=== PATIENT | female | born 1990 | race Caucasian/White ===

== ENCOUNTER 2023-05-07 20:06 | Inpatient (IN) | payer OTHER ==
[2023-05-07 21:09] VITALS: BMI 30.2
[2023-05-07] MEDS ORDERED: ACETAMINOPHEN 325 MG TABLET (FP) PO PRN (23:43)
[2023-05-07] MEDS ORDERED: NALOXONE HCL 0.4 MG/ML VIAL IM PRN (23:43)
[2023-05-07] MEDS ORDERED: IBUPROFEN 400 MG TABLET (FP) PO PRN (23:43)
[2023-05-07] MEDS ORDERED: BENZOCAINE/MENTHOL (CHLORASEPTIC ) LOZENGE MM PRN (23:43)
[2023-05-07] MEDS ORDERED: P-EPHED 60MG/TRIPROLIDI 2.5MG TABLET PO PRN (23:43)
[2023-05-07] MEDS ORDERED: DICYCLOMINE HCL 10 MG CAPSULE PO PRN (23:43)
[2023-05-07] MEDS ORDERED: ONDANSETRON *ODT* 4 MG TABLET SL PRN (23:43)
[2023-05-07] MEDS ORDERED: LOPERAMIDE HCL 2 MG CAPSULE PO PRN (23:43)
[2023-05-07] MEDS ORDERED: MAGNESIUM HYDROX 2400MG/30ML ORAL SUSPENSION 30 ML CUP PO PRN (23:43)
[2023-05-07] MEDS ORDERED: POLYETHYLENE GLYCOL (HEALTHYLAX) 3350 17 GM PACKET PO PRN (23:43)
[2023-05-07] MEDS ORDERED: guaiFENesin 600 MG TABLET.ER (FP) PO PRN (23:43)
[2023-05-07] MEDS ORDERED: MAG HYDROX/AL HYDROX/SIMETH 30 ML UNIT-DOSE CUP PO PRN (23:43)
[2023-05-07] MEDS ORDERED: BISMUTH SUBSALICYLATE 524 MG/30 ML PO PRN (23:43)
[2023-05-07] MEDS ORDERED: IBUPROFEN 600 MG TABLET (FP) PO PRN (23:43)
[2023-05-07] MEDS ORDERED: BENZONATATE 200 MG CAPSULE PO PRN (23:43)
[2023-05-07] MEDS ORDERED: NALOXONE HCL (KLOXXADO) 8 MG SPRAY NS PRN (23:43)
[2023-05-08 10:45] LABS: HEMATOCRIT 37.9 % (32.4-45.2); HEMOGLOBIN 12.2 GM/dL (10.7-15.3); MCH 28.5 pg (25.7-33.7); MCHC 32.2 g/dl (32.0-36.0); MEAN CELL VOLUME 88.3 fl (80-96); PLATELET COUNT 251 10^3/uL (134-434); RBC 4.29 M/mm3 (3.60-5.2); RDW 14.1 % (11.6-15.6); WHITE BLOOD COUNT 10.5 K/mm3 (4.0-10.0)
[2023-05-08] MEDS ORDERED: PRENATAL VITAMINS W/ FOLIC ACID TABLET (FP) PO ONE (11:12)
[2023-05-08] MEDS: PRENATAL VITAMINS W/ FOLIC ACID TABLET (FP) PO SCH (11:14)
[2023-05-08 11:50] LABS: CHLORIDE 111 mmol/L (98-107); POTASSIUM 4.3 mmol/L (3.5-5.1); SODIUM 143 mmol/L (136-145)
[2023-05-08 11:53] LABS: BLOOD UREA NITROGEN 14.7 mg/dL (7-18); GLUCOSE,RANDOM 91 mg/dL (74-106)
[2023-05-08 11:54] LABS: ALBUMIN 3.2 g/dl (3.4-5.0)
[2023-05-08 11:55] LABS: CALCIUM 9.1 mg/dL (8.5-10.1)
[2023-05-08 11:56] LABS: ANION GAP 5 MMOL/L (8-16); CO2 27 mmol/L (21-32)
[2023-05-08 11:57] LABS: CREATININE 0.8 mg/dL (0.55-1.3); SGOT/AST 12 U/L (15-37); SGPT/ALT 25 U/L (13-61)
[2023-05-08 12:01] LABS: BILIRUBIN,TOTAL < 0.1 mg/dL (0.2-1); TOT PROT 6.1 g/dl (6.4-8.2)
[2023-05-08 12:02] LABS: ALK PHOS 66 U/L (45-117)
[2023-05-08] MEDS: NICOTINE POLACRILEX 2 MG GUM BUC PRN ×2 (16:49→19:45)
[2023-05-08] MEDS: hydrOXYzine PAMOATE 25 MG CAPSULE (FP) PO PRN (18:29)
[2023-05-08] MEDS ORDERED: MELATONIN 5 MG TABLETS PO SCH (22:00)
[2023-05-08] MEDS: THIAMINE HCL 100 MG TABLET (FP) PO SCH (22:29)
[2023-05-08] MEDS: diazePAM 5 MG TABLET PO PRN (22:29)
[2023-05-09] MEDS ORDERED: cloNIDine HCL 0.1 MG TABLET PO PRN (09:43)
[2023-05-09] MEDS ORDERED: methaDONE HCL 10 MG TABLET (FOR DETOX USE ONLY) PO ONE (10:00)
[2023-05-09] MEDS: diazePAM 5 MG TABLET PO PRN ×2 (10:26→22:04)
[2023-05-09] MEDS: METHOCARBAMOL 500 MG TABLET PO PRN ×2 (10:26→22:03)
[2023-05-09] MEDS: NICOTINE POLACRILEX 2 MG GUM BUC PRN ×3 (10:27→16:04)
[2023-05-09] MEDS: PRENATAL VITAMINS W/ FOLIC ACID TABLET (FP) PO SCH (10:28)
[2023-05-09] MEDS: hydrOXYzine PAMOATE 25 MG CAPSULE (FP) PO PRN (22:03)
[2023-05-09] MEDS: traZODone HCL 50 MG TABLET (FP) PO SCH (22:03)
[2023-05-09] MEDS: THIAMINE HCL 100 MG TABLET (FP) PO SCH (22:03)
[2023-05-10] MEDS: PRENATAL VITAMINS W/ FOLIC ACID TABLET (FP) PO SCH (10:01)
[2023-05-10] MEDS: DEXTROAMPHETAMINE/AMPHETAMINE 10 MG CAP.ER.24H PO SCH (10:01)
[2023-05-10] MEDS: diazePAM 5 MG TABLET PO PRN ×2 (10:03→17:27)
[2023-05-10] MEDS: NICOTINE POLACRILEX 2 MG GUM BUC PRN ×5 (10:04→19:52)
[2023-05-10] MEDS: METHOCARBAMOL 500 MG TABLET PO PRN ×2 (11:19→22:10)
[2023-05-10] MEDS: hydrOXYzine PAMOATE 25 MG CAPSULE (FP) PO PRN ×2 (14:02→22:10)
[2023-05-10] MEDS: NICOTINE 14 MG/24 HOURS TOPICAL PATCH TD SCH (16:11)
[2023-05-10] MEDS: THIAMINE HCL 100 MG TABLET (FP) PO SCH (22:08)
[2023-05-10] MEDS: traZODone HCL 50 MG TABLET (FP) PO SCH (22:08)
[2023-05-11] MEDS: PRENATAL VITAMINS W/ FOLIC ACID TABLET (FP) PO SCH (09:36)
[2023-05-11] MEDS: DEXTROAMPHETAMINE/AMPHETAMINE 10 MG CAP.ER.24H PO SCH (09:36)
[2023-05-11] MEDS: NICOTINE 14 MG/24 HOURS TOPICAL PATCH TD SCH (09:37)
[2023-05-11] MEDS: METHOCARBAMOL 500 MG TABLET PO PRN ×2 (09:38→17:23)
[2023-05-11] MEDS ORDERED: methaDONE HCL 10 MG TABLET (FOR DETOX USE ONLY) PO ONE (10:00)
[2023-05-11] MEDS: NICOTINE POLACRILEX 2 MG GUM BUC PRN ×2 (11:58→19:55)
[2023-05-11] MEDS: diazePAM 5 MG TABLET PO PRN (13:46)
[2023-05-11] MEDS: hydrOXYzine PAMOATE 25 MG CAPSULE (FP) PO PRN (13:46)
[2023-05-11] MEDS: THIAMINE HCL 100 MG TABLET (FP) PO SCH (22:23)
[2023-05-11] MEDS: traZODone HCL 50 MG TABLET (FP) PO SCH (22:23)
[2023-05-12] MEDS ORDERED: methaDONE HCL 10 MG TABLET (FOR DETOX USE ONLY) PO ONE (10:00)
[2023-05-12] MEDS: DEXTROAMPHETAMINE/AMPHETAMINE 10 MG CAP.ER.24H PO SCH (10:06)
[2023-05-12] MEDS: PRENATAL VITAMINS W/ FOLIC ACID TABLET (FP) PO SCH (10:06)
[2023-05-12] MEDS: NICOTINE 14 MG/24 HOURS TOPICAL PATCH TD SCH (10:07)
[2023-05-12] MEDS: diazePAM 5 MG TABLET PO PRN ×2 (13:45→22:16)
[2023-05-12] MEDS: hydrOXYzine PAMOATE 25 MG CAPSULE (FP) PO PRN ×2 (13:45→22:14)
[2023-05-12] MEDS: THIAMINE HCL 100 MG TABLET (FP) PO SCH (22:14)
[2023-05-12] MEDS: METHOCARBAMOL 500 MG TABLET PO PRN (22:14)
[2023-05-12] MEDS: traZODone HCL 50 MG TABLET (FP) PO SCH (22:14)
[2023-05-13] MEDS: diazePAM 5 MG TABLET PO PRN (05:29)
[2023-05-13 06:57] VITALS: BP 108/74; PULSE 93; RESP 16; TEMP 97.1
[2023-05-13] MEDS ORDERED: methaDONE HCL 10 MG TABLET (FOR DETOX USE ONLY) PO ONE (10:00)
== END 2023-05-13 08:30 | disposition home or self-care (01) | DRG 773 ==
LOC: YASAS 20:06 → Y3N 05-08 12:42
PROVIDERS: ADMIT Allergy & Immunology; ATTEND Surgery
PROC: HZ2ZZZZ Detoxification Services for Substance Abuse Treatment (ICD-10-PCS; principal; 2023-05-08)
DX: F11.23 Opioid dependence with withdrawal (principal); F13.230 Sedative, hypnotic or anxiolytic dependence with withdrawal, uncomplicated; F14.20 Cocaine dependence, uncomplicated; F12.20 Cannabis dependence, uncomplicated; F17.210 Nicotine dependence, cigarettes, uncomplicated; F19.282 Other psychoactive substance dependence with psychoactive substance-induced sleep disorder; F41.8 Other specified anxiety disorders
CPT/HCPCS: 36415; 80053; 81025; 85027; 86780; 87635; 87811